=== PATIENT | female | born 1985 | race Caucasian/White ===

== ENCOUNTER → 2020-07-14 | Outpatient (CLI) | payer OTHER ==
--- NOTE | 2020-07-14 09:47 | MR ---
EXAMINATION TYPE: MR shoulder LT wo con DATE OF EXAM: 07/14/2020 COMPARISON: None HISTORY: Lt shoulder pain, sprain TECHNIQUE: Multiplanar, multisequence imaging of the left shoulder is performed without contrast. FINDINGS: There is motion on the exam, patient showed limited ability to cooperate Rotator Cuff: There is abnormal increased signal within the rotator cuff, some local fluid is present suggesting tendinosis, some attenuation of the tendon noted on sagittal image #7, coronal image #13 suggest possible intrasubstance tear Acromioclavicular Joint: Hypertrophic change at the acromioclavicular joint causes mass effect on the musculotendinous junction of supraspinatus, distal acromion somewhat downturned, distal acromial spu r is present. Glenohumeral Joint: Intact Labrum: The labrum appears grossly intact given limitation of non-arthrogram study. Biceps Tendon: The long head of biceps is in normal location within bicipital groove is some fluid si gnal present along the long head of biceps tendon. Bone marrow signal: No focal abnormal marrow signal is appreciated. Other: Some fluid signal present in the subacromial subdeltoid bursa. IMPRESSION: Correlate for impingement, there is tendinosis and likely intrasubstance tear involving the rotator c uff, there is some motion on the exam
== END | disposition home or self-care (01) ==
LOC: RADMRIMAIN 08:53
PROVIDERS: ATTEND Emergency Medicine
DX: M67.814 Other specified disorders of tendon, left shoulder (principal)